=== PATIENT | female | born 1960 | race Caucasian/White ===

== ENCOUNTER 2021-06-07 13:06 | Emergency (ER) | payer MEDICARE, OTHER ==
[2021-06-07 15:15] LABS: HEMOGLOBIN 15.7 gm/dl (12.3-15.3); RED BLOOD COUNT 4.76 M/UL (4.00-5.10); WHITE BLOOD COUNT 6.9 K/UL (4.5-11.0)
[2021-07-23] MEDS ORDERED: CYANOCOBAL1000 MCG/1 INJ (12:16)
[2021-07-23] MEDS ORDERED: SEROQUEL100 MG PO (12:17)
[2021-07-23] MEDS ORDERED: LEVOTHYROXINE25 MC1 PO (12:17)
[2021-07-23] MEDS ORDERED: XANAX2 MG PO (12:18)
[2021-07-23] MEDS ORDERED: LAMICTAL TAB 2525 MG PO (12:18)
[2021-07-23] MEDS ORDERED: ZOLOFT100 MG PO (12:19)
[2021-07-23] MEDS ORDERED: OMEPRAZOLE20 M1 PO (12:19)
[2021-07-23] MEDS ORDERED: EXCEDRIN EXTRA1 EACH PO (12:21)
== END 2021-06-07 17:08 | disposition home or self-care (01) ==
LOC: ER1 13:06
PROVIDERS: Physician Assistant
DX: R53.1 Weakness (principal); R20.2 Paresthesia of skin; F17.200 Nicotine dependence, unspecified, uncomplicated; Z90.710 Acquired absence of both cervix and uterus; Z88.2 Allergy status to sulfonamides
CPT/HCPCS: 80053; 80307; 84439; 84443; 85025; 99284

== ENCOUNTER → 2021-06-14 | Outpatient (CLI) | payer MEDICARE ==
[~2021-06-14] MED LIST: CYANOCOBAL1000 MCG/1 INJ; EXCEDRIN EXTRA1 EACH PO; LAMICTAL TAB 2525 MG PO; LEVOTHYROXINE25 MC1 PO; OMEPRAZOLE20 M1 PO; SEROQUEL100 MG PO; XANAX2 MG PO; ZOLOFT100 MG PO
== END ==
LOC: MRI 08:02
DX: G37.9 Demyelinating disease of central nervous system, unspecified (principal); J32.0 Chronic maxillary sinusitis; M50.821 Other cervical disc disorders at C4-C5 level; M48.02 Spinal stenosis, cervical region; R93.7 Abnormal findings on diagnostic imaging of other parts of musculoskeletal system; R90.89 Other abnormal findings on diagnostic imaging of central nervous system
CPT/HCPCS: 70553; 72156; A9577

== ENCOUNTER → 2021-07-16 | Outpatient (CLI) | payer MEDICARE | LOC: KOH-I 08:30 | DX: M47.22 Other spondylosis with radiculopathy, cervical region (principal); M50.11 Cervical disc disorder with radiculopathy, high cervical region; M48.02 Spinal stenosis, cervical region | CPT/HCPCS: 72125 ==

== ENCOUNTER → 2021-07-23 | Outpatient (CLI) | payer MEDICARE ==
[2021-07-23 12:09] LABS: HEMOGLOBIN 15.6 gm/dl (12.3-15.3); RED BLOOD COUNT 4.69 M/UL (4.00-5.10); WHITE BLOOD COUNT 6.2 K/UL (4.5-11.0)
== END ==
LOC: EDSTATUS 11:00 → OPSV2 11:00
PROVIDERS: Orthopaedic Surgery
DX: Z01.818 Encounter for other preprocedural examination (principal); M54.12 Radiculopathy, cervical region
CPT/HCPCS: 36415; 71046; 80048; 81001; 85027; 85610; 85730; 87081; 87086; 93005

== ENCOUNTER → 2021-09-17 | Outpatient (CLI) | payer MEDICARE ==
[~2021-09-17] MED LIST changes: +LAMICTAL25 MG PO
[2021-09-17 12:51] LABS: HEMOGLOBIN 15.4 gm/dl (12.3-15.3); RED BLOOD COUNT 4.64 M/UL (4.00-5.10)
== END ==
LOC: EDSTATUS 12:00 → OPSV2 12:00
PROVIDERS: Orthopaedic Surgery
DX: Z01.818 Encounter for other preprocedural examination (principal); M54.12 Radiculopathy, cervical region
CPT/HCPCS: 36415; 80048; 81001; 85027; 85610; 85730; 87086; 93005

== ENCOUNTER 2021-10-01 05:15 | Inpatient (IN) | payer MEDICARE ==
[~2021-10-01] VITALS: Ht 167.6 cm; Wt 73.5 kg
[~2021-10-01 05:15] MED LIST changes: -LAMICTAL TAB 2525 MG PO; -LEVOTHYROXINE25 MC1 PO; -SEROQUEL100 MG PO; -XANAX2 MG PO; -ZOLOFT100 MG PO
[2021-10-01 07:17] LABS: BUN/CREATININE RATIO 15 (0-10)
[2021-10-01] MEDS ORDERED: LEVOTHYROXINE25 MCG PO (12:17)
[2021-10-01] MEDS ORDERED: SEROQUEL100 MG PO (12:17)
[2021-10-01] MEDS ORDERED: LAMICTAL TAB 2525 MG PO (12:18)
[2021-10-01] MEDS ORDERED: XANAX2 MG PO (12:18)
[2021-10-01] MEDS ORDERED: ZOLOFT100 MG PO (12:19)
[2021-10-01 15:05] LABS: HEMOGLOBIN 12.7 gm/dl (12.3-15.3); RED BLOOD COUNT 3.91 M/UL (4.00-5.10); WHITE BLOOD COUNT 11.3 K/UL (4.5-11.0)
[2021-10-01 15:19] LABS: BUN/CREATININE RATIO 12 (0-10)
[2021-10-01] MEDS ORDERED: AMPHETAMINE SAL30 MG PO (17:36)
[2021-10-01] MEDS ORDERED: DEXAMETHASONE2 MG PO (17:37)
[2021-10-01] MEDS ORDERED: DEXAMETHASONE4 MG PO (17:37)
[2021-10-01] MEDS ORDERED: FLONASE ALLER15.8 ML (17:38)
[2021-10-01] MEDS ORDERED: IBU800 MG PO (17:39)
[2021-10-01] MEDS ORDERED: PROAIR DIGIHAL90 MCG INH (17:39)
[2021-10-01] MEDS ORDERED: MIRTAZAPINE30 MG PO (17:40)
[2021-10-01] MEDS ORDERED: ESOMEPRAZOLE MA40 MG PO (17:40)
[2021-10-02 05:27] LABS: HEMOGLOBIN 13.6 gm/dl (12.3-15.3); RED BLOOD COUNT 4.12 M/UL (4.00-5.10); WHITE BLOOD COUNT 11.1 K/UL (4.5-11.0)
[2021-10-02 05:45] LABS: BUN/CREATININE RATIO 10 (0-10)
[2021-10-03 05:16] LABS: HEMOGLOBIN 12.4 gm/dl (12.3-15.3); RED BLOOD COUNT 3.79 M/UL (4.00-5.10); WHITE BLOOD COUNT 12.7 K/UL (4.5-11.0)
[2021-10-03 06:02] LABS: BUN/CREATININE RATIO 17 (0-10)
[2021-10-04 03:28] LABS: HEMOGLOBIN 11.6 gm/dl (12.3-15.3); RED BLOOD COUNT 3.67 M/UL (4.00-5.10); WHITE BLOOD COUNT 13.8 K/UL (4.5-11.0)
[2021-10-04 03:43] LABS: BUN/CREATININE RATIO 23 (0-10)
[2021-10-04] MEDS ORDERED: FLU VACCINE IM (17:25)
[2021-10-04] MEDS ORDERED: AMOX TR-K CLV1 EAC4 PO (17:25)
== END 2021-10-04 19:15 | disposition home health service (06) | DRG 459 ==
LOC: OR 05:15 → CCU 15:54 → PROG CARE 10-03 17:30
PROVIDERS: ADMIT Orthopaedic Surgery
PROC: 0RG407J Fusion of Cervicothoracic Vertebral Joint with Autologous Tissue Substitute, Posterior Approach, Anterior Column, Open Approach (ICD-10-PCS; 2021-10-01)
PROC: 0RG207J Fusion of 2 or more Cervical Vertebral Joints with Autologous Tissue Substitute, Posterior Approach, Anterior Column, Open Approach (ICD-10-PCS; 2021-10-01)
PROC: 01N10ZZ Release Cervical Nerve, Open Approach (ICD-10-PCS; 2021-10-01)
PROC: 4A10X4G Monitoring of Central Nervous Electrical Activity, Intraoperative, External Approach (ICD-10-PCS; 2021-10-01)
PROC: 0RG607J Fusion of Thoracic Vertebral Joint with Autologous Tissue Substitute, Posterior Approach, Anterior Column, Open Approach (ICD-10-PCS; principal; 2021-10-01 07:30)
DX: M47.12 Other spondylosis with myelopathy, cervical region (principal); J96.01 Acute respiratory failure with hypoxia; J98.11 Atelectasis; Z20.822 Contact with and (suspected) exposure to COVID-19; M47.22 Other spondylosis with radiculopathy, cervical region; F90.9 Attention-deficit hyperactivity disorder, unspecified type; F32.A Depression, unspecified; F41.9 Anxiety disorder, unspecified; K21.9 Gastro-esophageal reflux disease without esophagitis; F17.210 Nicotine dependence, cigarettes, uncomplicated; F41.0 Panic disorder [episodic paroxysmal anxiety]; F43.10 Post-traumatic stress disorder, unspecified; G62.9 Polyneuropathy, unspecified; E03.9 Hypothyroidism, unspecified; Z82.49 Family history of ischemic heart disease and other diseases of the circulatory system; Z83.3 Family history of diabetes mellitus; Z90.49 Acquired absence of other specified parts of digestive tract; Z90.710 Acquired absence of both cervix and uterus; Z80.7 Family history of other malignant neoplasms of lymphoid, hematopoietic and related tissues
CPT/HCPCS: 36415; 71045; 71046; 72040; 72050; 76000; 80048; 85025; 85027; 86850; 86900; 86901; 94640; 94664; 94760; 97116-GP-CQ; 97162; 97166; 97535; C1713; C1762; J0690; J1040; J1100; J1170; J1335; J2001; J2250; J2370; J2405; J2704; J2710; J3010; J3370; J7040; J7120